=== PATIENT | female | born 1950 | race Caucasian/White ===

== ENCOUNTER → 2016-11-28 | Day surgery (SDC) | payer MEDICARE ==
--- NOTE | 2016-11-25 09:48 | TH ---
cc: SADA COSTA M.D. DATE 11/25/2016 DATE OF 1950 PROCEDURE TO BE PERFORMED Revision/reconstruction bilateral including an augmentation mammoplasty on the right breast [id number], left breast [id number]. Also do some fat injections, possible envelope reduction. HISTORY OF PRESENT ILLNESS This is a 65-year-old female who back in 2011 underwent a lumpectomy with further radiation on the right breast. This developed a significant deformity. I took the patient back on 01/19/16 for a matching left reduction and fat injections and another session on 05/09/2016. Although we have been moving along and the area is looking more and more balanced, we still have a significant asymmetry with both breasts the reason for which she was planning to do the above-mentioned procedures. PAST MEDICAL HISTORY Otherwise significant for hypertension and COPD. PAST SURGICAL HISTORY As above mentioned, lumpectomy and the cataract surgery. MEDICATIONS 1. Formoterol 2. Hydrochlorothiazide 3. Ambien 4. Levothyroxine 5. Anastrozole 6. Lorazepam 7. Aspirin 8. Vitamin D 9. Chantix ALLERGIES KEFLEX SOCIAL HISTORY Ex-smoker HABITS Benign REVIEW OF SYSTEMS Unremarkable PHYSICAL EXAM CONSTITUTIONAL: General appearance. The patient is a well-developed female in no acute distress. Body habitus is within normal limits. There appear to be no deformities. Appears to have attention to grooming. HEENT: Eyes Conjunctivae and lids are within normal anatomical limits. The pupils are reactive to light and accommodation, size, and symmetry. There is no evidence of exudate, hemorrhage, or vessel change. Ears, mouth, nose, and throat The external inspection of the ears and nose fails to demonstrate any pathology, scars, lesions, or masses. Nasal mucosa, septum, and turbinates appear to be well hydrated as well as the lips and gums. No evidence of masses in the hypopharynx or submental area. RESPIRATORY: The patient shows no evidence of intercostal refractions. Otherwise, lungs are clear to auscultation without any abnormal sounds or rubs. CARDIOVASCULAR: The patient has a normal heart rate and rhythm. There is no evidence of noticed carotid bruits. Femoral pulses and pedal pulses in extremities are also within normal limits. GASTROINTESTINAL/ABDOMEN: Soft with no evidence of masses or tenderness. Unable to palpate the liver or spleen. No evidence of hernia. MUSCULOSKELETAL: Appears to be reasonable range of motion on the head, neck, spine, ribs, pelvis, right upper extremity, left upper extremity, right lower extremity, and left lower extremity. The muscle strength and tone appears to be equal and within accepted limits. SKIN: There is no rashes, lesions, or ulcers on the trunk, back, and extremities. NEUROLOGICAL: Examination is grossly normal. PSYCHIATRIC: The patient appears to have good orientation of time, place, and person. Does not appear to have any mood effects of depression, anxiety, or agitation. BREASTS: Her breasts indeed shows significant deformity of both breasts. PLAN As above dictation. MD JADA Whitley/KATHRYN /9:31 AM /9:39 AM
[~2016-11-28] MED LIST: ACETAMINOPHEN 1000 MG/100 ML VIAL IV ONE; BACITRACIN IM FOR SOLN 50,000 UNIT VIAL ONE; BUPIVACAINE/EPINEPHRINE 0.5% PF 10 ML VIAL ONE; GENTAMICIN SULFATE 80 MG/2 ML VIAL ONE; LACTATED RINGER'S 1000 ML INJ 1,000 ML ONE; LIDOCAINE 1%/EPINEPHrine 1:100,000 SOLN 20 ML VIAL ONE; MEPERIDINE HCL 50 MG/ML VIAL ONE; MIDAZOLAM HCL 2 MG/2 ML VIAL ONE; SODIUM CHLORIDE 0.9% 20 ML VIAL ONE; SODIUM CHLORIDE 0.9% 250 ML ADDBAG IV ONE; VANCOMYCIN 500 MG VIAL ONE; ceFAZolin INJ 1,000 MG VIAL ONE
--- NOTE | 2016-11-28 12:27 | TN ---
cc: SADA COSTA M.D. DATE OF SURGERY November 28, 2016 PREOPERATIVE DIAGNOSIS Status post right lumpectomy and radiation with further deformity, asymmetry and discomfort. PROCEDURE 1. Right breast augmentation mammoplasty, debridement of radiated breast tissue and muscle and circumareolar mastopexy with 35-cc of fat injections. 2. Left breast matching augmentation mammoplasty with circumvertical mastopexy and fat injections, total of 60 cc. IMPLANT DATA 1. Right breast - [employer] SRM, 345 cc, serial number [id number]. 2. Left breast - Natrelle style 1100, volume 240, serial number [id number]. COMPLICATIONS None. DRAINS One 7-mm TAWNYA to the right breast. INDICATIONS FOR PROCEDURE Ms. Felder is a 66-year-old female who had a terrible contracture deformity of the right breast after having a lumpectomy with further radiation. We had a previous session of fat injections with some sort of relief but significant deformity, asymmetry and discomfort continues. After discussing the options with the patient, the procedure intervention above was offered. PROCEDURE She was properly consented, marked and properly anesthetized, the skin sterilized with Betadine solution and sterile draping applied. Attention was directed to the torso where after tumescing 1000 cc of normal saline in which 30 cc of lidocaine was applied with 1 cc of epinephrine 1:1000. The lidocaine was 1% plain. It was tumesced into the abdomen and flanks. I was able to liposuction 500 cc suitable for injection. After this was properly decanted and filtered for approximately 500, was down to approximately 140. Out of those, 60 was applied to the upper pole of the left breast and 35 cc to the inner and lower quadrant of the right breast. This was done of obviously after of the augmentation was performed. Our attention was directed to the right breast where, utilizing a an inferolateral mammary incision, I cut a significant amount of scar tissue involving the breast tissue, subcutaneous fat and muscle. The implant was placed in the retropectoral plane; however, there was significant scarring of the pectoralis major muscle and then I began in a dual plane. Needless to say, I was able to correct and release after releasing significant amount of the scar tissue. I better contoured on the medial and lower poles. Once the implant was introduced utilizing no-touch technique, I closed the wound in multiple 2-0 Monocryl suture layers in the breast parenchyma, dermis and subcu. Our attention was directed to the left breast where, utilizing the inferolateral incision, the retroperitoneal plane was also encountered and the implant was introduced. Finding no evidence of pathology, I closed the wounds in multiple layers utilizing the same suture material. The patient was sat up and after a session of fat injections again, about 35-40 cc on the inner quadrant of the right breast including the upper and medial and lower and the left breast about 50 cc to enhance the upper pole. Nonetheless, both breasts the utilizing a tailor tack technique, required a circumareolar mastopexy for the right breast, a circumvertical mastopexy on the left breast. This was properly deepithelialized after properly marking and sutured in the usual fashion utilizing 2-0 Monocryl suture. Both NAC were set at 38 mm areolar diameter and they were secured utilizing pinwheel technique with 2-0 PTFE and hence by Quill. All the incisions were dressed utilizing the Prineo Dermabond. Good viability of tissue was noted at the end of the case. Due to the significant amount of oozing and scar tissue, I ended up leaving a 7-mm TAWNYA drain that was brought out through a separate stab wound to the right breast and dressing with Biopatch and Tegaderm. An absorbent compression dressing was applied thereafter. Overall the patient tolerated the procedure well. She was awakened, extubated in the operating room, transferred back to the postanesthesia care unit in stable condition. No complications appreciated. The patient tolerated the procedure fairly well. MD JADA Whitley/LUKE /11:43 AM /12:05 PM ROSIE
== END | disposition home or self-care (01) ==
LOC: ESDC 07:30
PROVIDERS: ATTEND Plastic Surgery
DX: Z42.1 Encounter for breast reconstruction following mastectomy (principal); Z85.3 Personal history of malignant neoplasm of breast; N61.1 Abscess of the breast and nipple
CPT/HCPCS: 00402; 19316; 19325; 19342; 88305; C1789; J0131; J1580; J2175; J2250; J3010; J3370; J7120; 88307; J0690